=== PATIENT | female | born 1955 | race Caucasian/White ===

== ENCOUNTER 2023-11-16 11:48 | Emergency (ER) | payer MEDICARE, OTHER, SELFPAY ==
[2023-11-16 11:59] VITALS: BP 149/89
[2023-11-16 12:34] LABS: % Basophils 0.8 % (0-2); % Eosinophils 1.2 % (0-6); % Immature Granulocytes 0.2 % (0-0.5); % Lymphocytes 42.2 % (20.5-51.1); % Monocytes 7.5 % (1.7-9.3); % Neutrophils 48.1 % (42.2-75.2); Absolute Basophils 0.1 10^3/uL (0-0.2); Absolute Eosinophils 0.1 10^3/uL (0-0.7); Absolute Lymphocytes 2.5 10^3/uL (1.2-3.4); Absolute Monocytes 0.4 10^3/uL (0.1-0.6); Absolute Neutrophils 2.8 10^3/uL (1.4-6.5); Hematocrit 37.6 % (37.0-47.0); Hemoglobin 12.9 g/dL (12.0-16.0); Mean Corp Hgb Conc. 34.3 g/dL (33.0-37.0); Mean Corpuscular Hgb 30.7 pg (27.0-31.0); Mean Corpuscular Volume 89.5 fL (81.0-99.0); Mean Platelet Volume 10.5 fL (7.4-10.4); Nucleated Red Blood Cells % 0 %; Platelet Count 329 10^3/uL (130-400); Red Cell Dist. Width 12.8 % (11.5-14.5); White Blood Cell Count 5.9 10^3/uL (4.8-10.8)
[2023-11-16 12:47] LABS: ALT (SGPT) 18 U/L (0-35); AST (SGOT) 30 U/L (14-36); Albumin 4.5 g/dl (3.5-5.0); Alkaline Phosphatase 90 U/L (38-126); Blood Urea Nitrogen 12 mg/dl (7-17); Calcium 10.1 mg/dl (8.4-10.2); Carbon Dioxide 22 mmol/L (22-30); Chloride 104 mmol/L (98-107); Glucose 121 mg/dl (70-99); Potassium 3.9 mmol/L (3.5-5.1); Sodium 137 mmol/L (135-145); Total Bilirubin 0.7 mg/dl (0.2-1.3); Total Protein 7.4 g/dl (6.3-8.2); eGFR > 60.00
--- NOTE | 2023-11-16 13:57 | ED.GENMED ---
History of Present Illness
General
Chief Complaint: Dizziness
Time Seen by Provider: 11/16/23 13:56
Travel History
Have you had any contact with someone who has COVID-19?: No
Do you have any symptoms of coronavirus? Fever > 100 degrees, chills, cough, shortness of breath, sore throat, loss of taste or smell, muscle aches, or headache?: No
History of Present Illness
History of Present Illness:
67-year-old female presents to the emergency department for sudden onset of dizziness and room spinning sensation associated with vomiting that occurred just prior to arrival. Patient notes that she was head butted by her horse yesterday, had no
initial symptoms and felt well today. Emergency room majority of the day without any symptoms but abruptly had onset of dizziness approximately 1 to 2 hours prior to my arrival. On my evaluation the patient is asymptomatic and states she was able
to ambulate to the bathroom without any recurrence of symptoms. Denies any recent fevers or chills. Does note left-sided tinnitus but the head injury from a horse was right-sided.
Past History
Past History
ED Past Medical History: None
Review of Systems
Review of Systems
Allergies reviewed?: Yes
All Other Systems: ROS reviewed and negative except as documented in HPI and ROS
Phy Exam
Physical Exam
Physical Exam:
GEN: Well appearing, NAD, WDWN
HEENT: Oral mucosa moist, no scleral icterus, no nasal congestion, mild cerumen impactions bilaterally, no evidence for erythema to the tympanic membranes or hemotympanum
Cardiac: Regular rate
Lung: No respiratory distress, no tachypnea
MSK: No gross deformity or injuries
Skin: Good color, no pallor or jaundice, no rashes
Neuro: AO x3; CN II-XII grossly intact. BUE strength 5/5 in all elias, sensation intact and symmetric. BLE strength 5/5 in all elias, sensation intact and symmetric
Psych: Calm, cooperative
Course
Orders/Labs/Results
Orders:
Orders
11/16/23 12:01
CT Head W/o Iv Contrast Urgent
Comment:
Reason For Exam: head injury, dizziness
11/16/23 12:08
Complete Blood Count/With Diff Urgent
Comprehensive Metabolic Panel Urgent
Abnormal Lab Results
11/16/23
12:08
MPV 10.5 H fL
(7.4-10.4)
Glucose 121 H mg/dl
(70-99)
11/16/23 12:08
11/16/23 12:08
Vital Signs
Initial and Last Documented VS:
Initial Vital Signs
Temp Pulse Resp BP Pulse Ox
98.1 F 70 18 149/89 98
11/16/23 11:59 11/16/23 11:59 11/16/23 11:59 11/16/23 11:59 11/16/23 11:59
Last Documented Vital Signs
Temp Pulse Resp BP Pulse Ox
98.1 F 62 16 146/73 98
11/16/23 11:59 11/16/23 14:30 11/16/23 14:30 11/16/23 14:05 11/16/23 11:59
MDM/Problems Addressed
MDM/Problems Addressed:
Head CT was obtained due to the prior trauma showing no evidence for acute intracranial abnormality. The patient symptoms likely represent acute onset of benign vertigo that is unrelated to the prior head trauma. She is asymptomatic on my
evaluation and had no provokable vertigo, suitable for discharge home. Recommended outpatient vestibular rehab if symptoms are recurrent, trial of meclizine for intermittent symptoms
*Critical Care Note
Total Time (30-74mins, 75-104mins- exclusive of procedures): Not Applicable
ED Attending Note
-
Portions of this chart may have been created with voice recognition software.� Occasional wrong word or��sound alike� substitutions may have occurred due to the inherent limitations of voice recognition software.
Discharge Plan
Departure
Patient Disposition: Home (Routine Discharge)
Date of Disposition: 11/16/23
Time of Disposition: 14:29
Patient with high blood pressure during this ER visit?: Yes
Discharge Problem:
Benign paroxysmal positional vertigo
Instructions: Vertigo (a Type of Dizziness) (DC)
Prescriptions:
New
meclizine 25 mg tablet
25 mg PO TID PRN (Reason: dizziness) Qty: 20 0RF
No Action
hydrocodone-acetaminophen 5 MG/500 MG tablet
1 tab PO .Q4-6HPRN PRN (Reason: PAIN) Qty: 20 0RF
Referrals:
Queenie Garcia, [Family Provider] -
Activity Restrictions/Additional Instructions:
Your symptoms are consistent with benign vertigo and not due to a concussion
Follow-up with your primary care physician if symptoms recur frequently as you may need outpatient vestibular physical therapy
Use the meclizine I prescribed you only as needed for severe symptoms, there is no benefit to using this preventatively
Interventions
Interventions:
*Risk Screen - Suicide Last Done: 11/16/23 14:00
*General Assessment Last Done: 11/16/23 14:00
*Neglect/Abuse Screening Last Done: 11/16/23 14:00
ED- Fall Risk Assessment Last Done: 11/16/23 14:00
ED- Neurological Assessment Last Done: 11/16/23 14:00
ED- Cardiac Assessment Last Done: 11/16/23 14:00
ED Swallowing Screen Last Done: 11/16/23 14:00
Discharge Date and Time
Print Language: CYMRO
[2023-11-16 14:05] VITALS: BP 146/73
--- NOTE | 2023-11-16 15:04 | EDRN ---
Discharge instructinos given to patient by Joe Bonilla PA-C.
== END 2023-11-16 14:45 | disposition home or self-care (01) ==
LOC: EMR 11:48
PROVIDERS: Emergency Medicine; EMERGENCY PHYSICIAN Emergency Medicine; FAMILY PHYSICIAN Family Medicine
DX: H81.10 Benign paroxysmal vertigo, unspecified ear (principal); H93.12 Tinnitus, left ear; S09.90XA Unspecified injury of head, initial encounter; R11.10 Vomiting, unspecified; W55.12XA Struck by horse, initial encounter; R03.0 Elevated blood-pressure reading, without diagnosis of hypertension
CPT/HCPCS: 99284; 70450; 80053; 85025